=== PATIENT | female | born 1960 | race Caucasian/White ===

== ENCOUNTER → 2016-07-06 | Day surgery (SDC) | payer OTHER ==
[~2016-07-06] MED LIST: ACETAMINOPHEN 1000 MG/100 ML VIAL IV ONE; BUPIVACAINE/EPINEPHRINE 0.5% PF 30 ML VIAL ONE; HEPARIN SODIUM - IV 10,000 UNITS/10 ML VIAL ONE; KETOROLAC TROMETHAMINE 30 MG/ML (IVP) VIAL ONE; LACTATED RINGER'S 1000 ML INJ 1,000 ML ONE; MIDAZOLAM HCL 2 MG/2 ML VIAL ONE; PROPOFOL 500 MG/50 ML BTL IV ONE; SODIUM CHLORIDE 0.9% 20 ML VIAL ONE; ceFAZolin 2 GM PREMIX 50 ML ONE
--- NOTE | 2016-07-06 12:15 | TN ---
cc: LAINE ARMENDARIZ DATE OF SURGERY: 07/06/2016 PREOPERATIVE DIAGNOSIS HER-2 positive, clinical stage I, right breast cancer. POSTOPERATIVE DIAGNOSIS HER-2 positive, clinical stage I, right breast cancer. PROCEDURE PERFORMED Left subclavian Rckqoh-F-Xgqb placement. SURGEON Laine Armendariz ANESTHESIA TIVA. INDICATION The patient is a 56-year-old female with a recently diagnosed clinical stage I, HER-2 positive right breast cancer. She now presents for left subclavian Esvfly-K-Mdhv placement to facilitate neoadjuvant chemotherapy. FINDINGS At the time of surgery normal left subclavian anatomy was identified. PROCEDURE After informed consent was obtained and site verification was performed, the patient was brought to the major operating room where she underwent IV sedation. The left and right chest and neck were prepped and draped in sterile fashion and she was placed in the Trendelenburg position. Local analgesia was applied to the left subclavian area and the left subclavian vein was identified via percutaneous cannulation. A J-wire was advanced via the Seldinger technique into the central circulation where its position was confirmed with fluoroscopy. Both sharp and electrocautery dissection was then performed around the wire to create a subcutaneous pocket for the reservoir. The catheter was measured out at 30 cm, flushed with heparinized saline and cut off. A peel-away sheath and introducer were advanced over the wire into the central circulation and the wire and introducer were removed. The catheter advanced easily through the peel-away sheath which was also removed. There was good position of the catheter tip at the atriocaval junction using fluoroscopy when the catheter was advanced to 20 cm. The catheter was cut off at that point and secured to the reservoir which was noted to flush and aspirate easily. The reservoir was secured to the chest wall with a single 2-0 Prolene suture and the wound was closed using interrupted 3-0 Vicryl subcutaneous suture and a 4-0 Monocryl subcuticular suture. Steri-Strips and a sterile dressing were applied. The patient tolerated the procedure well with minimal blood loss and she was brought to the recovery room in good condition. All sponge and needle counts were correct at the conclusion of the case. Chest x-ray is pending at the time of dictation. MD CAROL Molina/CHARLEEN /11:46 AM /12:07 PM
== END | disposition home or self-care (01) ==
LOC: ESDC 08:59
PROVIDERS: ATTEND Surgery
DX: C50.911 Malignant neoplasm of unspecified site of right female breast (principal)
CPT/HCPCS: 00532; 36561; 77001; C1788; J0131; J0690; J1644; J1885; J2250; J3010; J7120; J1642

== ENCOUNTER → 2016-08-16 | Day surgery (SDC) | payer OTHER ==
--- NOTE | 2016-08-06 10:03 | MH ---
cc: LAINE ARMENDARIZ DATE OF ADMISSION: 08/16/2016 PRINCIPAL DIAGNOSIS Right breast cancer ATTENDING PHYSICIAN Laine Armendariz MD HISTORY OF PRESENT ILLNESS The patient is a 56-year-old noted to have an area of microcalcifications in the lower inner right breast initially noted on a screening mammogram March 23, 2016 at [facility]. This was confirmed with a diagnostic right breast mammogram on April 18 and stereotactic biopsy was performed on June 08. This demonstrated moderately differentiated invasive ductal carcinoma with associated ductal carcinoma in situ which was multifocal. I initially recommended a needle-localized lumpectomy and sentinel lymph node biopsy which was scheduled for June 27. However, review of receptors demonstrated an estrogen receptor level of 78%, progesterone 52%, and HER2/thomas 3+. Because of the multifocal calcification and HER2/thomas amplification, I recommended consideration of neoadjuvant chemotherapy and she underwent Ygulan-L-Rmhb placement on June 27. She was subsequently seen by Dr. Navarro in medical oncology who felt that the tumor size was not definitive to recommend neoadjuvant therapy and she now presents for definitive surgical therapy. PAST MEDICAL HISTORY 1. Hypertension 2. Elevated cholesterol. PAST SURGICAL HISTORY Port placement. MEDICATIONS 1. Venlafaxine 37.5 mg daily. 2. Simvastatin. 3. Wellbutrin 4. Lovastatin. ALLERGIES She has no drug allergies. REPRODUCTIVE HISTORY: G0, P0. Menarche age 11, menopause age 51. She does not take hormone replacement therapy. FAMILY HISTORY Noncontributory. SOCIAL HISTORY She is a 30 pack-year smoker and continues to smoke one pack per day. REVIEW OF SYSTEMS Significant for gastroesophageal reflux and dizziness secondary to a sinus infection last month. PHYSICAL EXAMINATION GENERAL: She is alert and oriented x3 and in no acute distress. VITAL SIGNS: She is 5 feet 3 inches and weighs 165 pounds with a BMI of 29. Blood pressure is 126/87. Temperature is 98.6. Heart rate was 77 AND respirations were 16. HEENT: Exam was unremarkable NECK: Supple with no adenopathy or thyromegaly. CHEST: Clear throughout. CARDIAC: Normal S1-S2 with no murmurs, rubs or gallops. BREASTS: Exam revealed fibrocystic changes and hypertrophy with a left breast being larger than the right. There were no palpable breast masses. ABDOMEN: Soft and nontender throughout with no hepatosplenomegaly or masses. SKIN: There were no skin changes NEUROLOGIC: Unremarkable. PSYCHIATRIC: Unremarkable. IMPRESSION Ms. Lindsey has her2/ amplified clinical stage I breast cancer and will likely require adjuvant Herceptin therapy, but we will proceed with definitive surgical therapy to determine final tumor size. She understands the risks and benefits of the procedure and has agreed to proceed. MD CAROL Molina/ /4:18 PM /10:03 AM
[~2016-08-16] MED LIST changes: -ACETAMINOPHEN 1000 MG/100 ML VIAL IV ONE; +BUPIVACAINE HCL PF 0.5% 10 ML VIAL ONE; -BUPIVACAINE/EPINEPHRINE 0.5% PF 30 ML VIAL ONE; -HEPARIN SODIUM - IV 10,000 UNITS/10 ML VIAL ONE; +ISOSULFAN BLUE 50 MG/5 ML VIAL SQ ONE; -KETOROLAC TROMETHAMINE 30 MG/ML (IVP) VIAL ONE; +ONDANSETRON HCL 4 MG/2 ML VIAL IV PUSH ONE; +PROPOFOL 200 MG/20 ML AMP IV ONE; -PROPOFOL 500 MG/50 ML BTL IV ONE; +oxyCODONE/ACETAMINOPHEN 5 MG/325 MG TAB ONE
--- NOTE | 2016-08-16 16:51 | TN ---
cc: LAINE ARMENDARIZ DATE OF SURGERY: 08/16/2016 PRINCIPAL DIAGNOSIS Invasive ductal carcinoma of the right breast. PROCEDURE PERFORMED Right breast needle-localized lumpectomy and right axillary sentinel lymph node biopsy. SURGEON: Laine Armendariz MD. ANESTHESIA General via LMA device. INDICATION The patient is a 56-year-old female with a 3 cm area of microcalcifications in the lower inner right breast. Stereotactic biopsy demonstrated invasive ductal carcinoma with associated ductal carcinoma in situ. Her tumor was HER2/thomas positive and initially an Ewvwdp-G-Egou was placed for consideration of neoadjuvant chemotherapy. However, because the actual tumor size is not clear, we have elected to undergo definitive surgical therapy followed by adjuvant therapy. FINDINGS AT SURGERY Three sentinel lymph nodes were identified. #1 had a count of 51 and was not blue, #2 had a count of 16 and was not blue and #3 had a count of nine and was not blue. The specimen mammogram did demonstrate an intact wire and the biopsy clip and density were within the specimen. PROCEDURE PERFORMED After informed consent was obtained and site verification was performed, the patient was brought to the radiology suite where she underwent needle localization of her prior biopsy site as well as full scan lymphoscintigraphy which did not demonstrate any internal mammary enhancement. She was then brought to the major operating room where she underwent general anesthesia via an LMA device. She was given a single dose of IV Ancef and sequential compression hose were placed. 3 cc of half-strength Lymphazurin were injected in the subareolar right breast and a 5-minute massage was performed. The right breast and arm were then prepped and draped in sterile fashion. An incision was anesthetized at the inferior aspect of the right axillary hairline and both sharp and electrocautery dissection were performed until the level I axilla was entered. There was some slightly enlarged mid level I lymph nodes and each of these was circumferentially dissected free from surrounding structures using the harmonic scalpel with the counts as noted. The background count was 20. No other palpable adenopathy was identified and good hemostasis was noted. The three nodes were sent separately for permanent pathologic evaluation. The wound was closed using interrupted 3-0 Vicryl subcutaneous sutures and a 4-0 Monocryl subcuticular suture. Attention was then turned to the right breast where a periareolar skin incision was anesthetized and incised sharply in the 4 o'clock location. Both sharp and electrocautery dissection were then performed out to the wire entry point through the skin in the 4 o'clock location. The wire was secured with a hemostat and cut off at the skin with pin cutters. A 2-0 silk transfixion suture was placed at the wire entry point into the breast tissue and this became the anterior margin orientation. Electrocautery circumferential dissection was performed widely around the wire for a total distance of 3 cm. The specimen was oriented with a two sutures anteriorly, one long suture medially, and one short suture superiorly. The dissection did end above the level of the pectoralis fascia. Inspection of the specimen off the field demonstrated that the medial margin appeared close and this was sharply reexcised with a stitch on the new margin. The specimen was sent to mammography with the findings as noted was then sent for permanent pathologic evaluation. Hemostasis was easily obtained with electrocautery and the wound was closed using interrupted 3-0 Vicryl subcutaneous sutures and 4-0 Monocryl subcuticular suture. Steri-Strips and sterile dressings were applied. The patient tolerated the procedure well with minimal blood loss and she was extubated in the operating room and brought to recovery room in good condition. All sponge and needle counts were correct at the conclusion of the case. MD CAROL Molina/saleem /3:34 PM /4:41 PM
== END | disposition home or self-care (01) ==
LOC: ESDC 09:11
PROVIDERS: ATTEND Surgery
DX: C50.911 Malignant neoplasm of unspecified site of right female breast (principal)
CPT/HCPCS: 00400; 01610; 19125; 38525; 88307; J0690; J2250; J2405; J3010; J7120; Q9968